=== PATIENT | female | born 1935 | race Caucasian/White ===

== ENCOUNTER 2016-11-15 17:31 | Emergency (ER) | payer OTHER ==
[2016-11-15 17:49] VITALS: BP 141/71; PULSE 82; RESP 16; TEMP 97.4; O2SAT 99
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
== END 2016-11-15 18:10 | disposition home or self-care (01) ==
LOC: CED 17:31
DX: S91.052A Open bite, left ankle, initial encounter (principal); I10 Essential (primary) hypertension; Z87.891 Personal history of nicotine dependence; Z91.040 Latex allergy status; W54.0XXA Bitten by dog, initial encounter

== ENCOUNTER → 2016-12-24 | Outpatient (CLI) | payer OTHER | LOC: FIMAGING 07:37 | PROVIDERS: ATTEND Family Medicine | DX: Z12.31 Encounter for screening mammogram for malignant neoplasm of breast (principal); Z85.3 Personal history of malignant neoplasm of breast | CPT/HCPCS: G0202 ==

== ENCOUNTER → 2017-12-09 | Outpatient (CLI) | payer OTHER | LOC: FIMAGING 18:37 | PROVIDERS: ATTEND Family Medicine | DX: M54.16 Radiculopathy, lumbar region (principal); M79.604 Pain in right leg; M51.36 Other intervertebral disc degeneration, lumbar region; M51.26 Other intervertebral disc displacement, lumbar region; M51.27 Other intervertebral disc displacement, lumbosacral region; M48.061 Spinal stenosis, lumbar region without neurogenic claudication ==

== ENCOUNTER → 2017-12-29 | Outpatient (CLI) | payer OTHER | LOC: FIMAGING 14:14 | PROVIDERS: ATTEND Family Medicine | DX: Z12.31 Encounter for screening mammogram for malignant neoplasm of breast (principal); Z85.3 Personal history of malignant neoplasm of breast ==